=== PATIENT | male | born 1975 | race Caucasian/White ===

== ENCOUNTER 2018-05-01 18:59 | Emergency (ER) | payer OTHER ==
[2018-05-01 19:40] VITALS: BP 118/80; PULSE 73; TEMP 98; BMI 36.8
--- NOTE | 2018-05-01 19:40 | PDOC ---
Rapid Medical Evaluation Time Seen by Provider: 05/01/18 19:38 Medical Evaluation: 05/01/18 19:39 Pt presents to the ED for R eye pain x1 day. Unsure if he got anything in it at work. No visual changes. Exam: R eye is red, EOMI Orders: Nothing Pt to proceed to ED for further evaluation Discharge Disposition - Diagnosis Eye pain - Referrals - Patient Instructions - Post Discharge Activity
[2018-05-01] MEDS ORDERED: TETRACAINE 0.5% OPHTH SOLN 2 ML BOTTLE ONE (19:59)
[2018-05-01] MEDS ORDERED: FLUORESCEIN NA 1 EA STRIP OD ONE (20:08)
[2018-05-01] MEDS ORDERED: DIPHTH,PERTUSS(ACELL),TET 0.5 ML DISP.SYRIN IM ONE (20:08)
--- NOTE | 2018-05-01 20:13 | PDOC ---
History of Present Illness - General Chief Complaint: Eye Problem Stated Complaint: EYE PROBLEM Time Seen by Provider: 05/01/18 19:38 History Source: Patient Exam Limitations: No Limitations - History of Present Illness Initial Comments: 05/01/18 20:08 HISTORY OF PRESENT ILLNESS: 42-year-old male denies medical history presents emergency department with foreign body in right eye. 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 Patient states the room was filled with dust and he believes dust is the cause of the foreign body sensation. Patient presented emergency department when he looked in the mirror and he saw that he had obvious retained foreign body in his right eye. He denies any blurry vision or visual difficulties. Patient does not remember when his last tetanus shot was. No recent travel or sick contacts. PAST MEDICAL HISTORY: Denies past medical history SURGICAL HISTORY: Denies ALLERGIES: No known drug allergies REVIEW OF SYSTEMS General/Constitutional: Denies fever or chills. Denies weakness, weight change. HEENT: Denies change in vision. Denies ear pain or discharge. Denies sore throat. Right eye pain. Cardiovascular: Denies chest pain or shortness of breath. Respiratory: Denies cough, wheezing, or hemoptysis. Gastrointestinal: Denies nausea, vomiting, diarrhea or constipation. Denies rectal bleeding. Genitourinary: Denies dysuria, frequency, or change in urination. Musculoskeletal: Denies joint or muscle swelling or pain. Denies neck or back pain. Skin and breasts: Denies rash or easy bruising. Neurologic: Denies headache, vertigo, loss of consciousness, or loss of sensation. Psychiatric: Denies depression or anxiety. Endocrine: Denies increased thirst. Denies abnormal weight change. Hematologic/Lymphatic: Denies anemia, easy bleeding, or history of blood clots. Allergic/Immunologic: Denies hives or skin allergy. Denies latex allergy. PHYSICAL EXAM General Appearance: Well-appearing, appropriately dressed. No apparent distress , no intoxication. HEENT: EOMI, PERRLA, normal ENT inspection, normal voice, TMs normal, pharynx normal. No conjunctival pallor. No photophobia, scleral icterus. Visualized FB at 5 o'clock postiion in right eye. Neck: Supple. Trachea midline. No tenderness, rigidity, carotid bruit, stridor , lymphadenopathy, or thyromegaly. Respiratory/Chest: Lungs CTAB. No shortness of breath, chest tenderness, respiratory distress, accessory muscle use. No crackles, rales, rhonchi, stridor , wheezing, dullness Cardiovascular: RRR. S1, S2. No JVD, murmur, bradycardia, tachycardia. Vascular Pulses: Dorsalis-Pedis (R): 2+, Dorsalis-Pedis (L): 2+ Gastrointestinal/Abdominal: Normal bowel sounds. Abdomen soft, non-distended. No tenderness or rebound tenderness. No organomegaly, pulsatile mass, guarding, hernia, hepatomegaly, splenomegaly. Lymphatic: No adenopathy, tenderness. Musculoskeletal/Extremities: Normal inspection. FROM of all extremities, normal capillary refill. Pelvis Stable. No CVA tenderness. No tenderness to extremities, pedal edema, swelling, erythema or deformity. Integumentary: Appropriate color, dry, warm. No cyanosis, erythema, jaundice or rash Neurologic: hand expansion envelope maker II-XII intact. Fully oriented, alert. Appropriate mood/affect. Motor strength 5/5. No appreciable EOM palsy, facial droop or sensory deficit. Past History - Past Medical History Allergies/Adverse Reactions: Allergies Allergy/AdvReac Type Severity Reaction Status Date / Time No Known Allergies Allergy Verified 05/01/18 19:40 Home Medications: Ambulatory Orders Erythromycin 0.5% Eye Ointment [Erythromycin 0.5% Eye Ointment -] 1 applic OD 5XD #1 tube 05/01/18 COPD: No - Suicide/Smoking/Psychosocial Hx Smoking History: Never smoked *Physical Exam - Vital Signs Last Vital Signs Temp Pulse Resp BP Pulse Ox 98 F 73 18 118/80 100 05/01/18 19:37 05/01/18 19:37 05/01/18 19:37 05/01/18 19:37 05/01/18 19:37 Medical Decision Making - Medical Decision Making 05/01/18 20:09 A/P: 42-year-old male with foreign body in right cornea EYE EXAMINATION: Visual acuity: 20/30 in the left eye, 20/30 in the right eye, near, uncorrected The lid and lashes are normal. Extraocular movements are intact. The conjunctiva is clear without erythema, injection, or discharge Visualized foreign body in the cornea at the 5 o'clock position of the right iris. The pupils are equal, round and reactive to light. The fundus shows normal vessels and normal discs. Foreign body removed after instillation of tetracaine and saline. The corneal surface is normal post tetracaine and fluorescein. There is no corneal abrasion or foreign body. There is no abnormal fluorescein uptake. EES ointment as outpt. Ophtho f/u *DC/Admit/Observation/Transfer Diagnosis at time of Disposition: Foreign body of eye, external, right Qualifiers: Encounter type: initial encounter Qualified Code(s): T15.91XA - Foreign body on external eye, part unspecified, right eye, initial encounter - Discharge Dispostion Disposition: HOME Condition at time of disposition: Stable Decision to Admit order: No - Prescriptions Prescriptions: Erythromycin 0.5% Eye Ointment [Erythromycin 0.5% Eye Ointment -] 1 applic OD 5XD #1 tube - Referrals Referrals: Diya Campos MD [Staff Physician] - - Patient Instructions Additional Instructions: Rest, avoid rubbing eyes Wash hands, use eye drops as directed, wash hands after use May use eye lubricating drops as often as needed erythromycin ointment, one thin film 3 times a day for 5 days Tylenol or ibuprofen for pain relief Avoid contact with others until redness and discharge is gone from eyes. Followup with ophthalmology in one to 2 days for thorough exam Return to emergency department for worsened pain, swelling, vision problems. - Post Discharge Activity Forms/Work/School Notes: Back to Work
[2018-05-01] MEDS ORDERED: ERYTHROMYCIN 0.5% OPHTHALMIC OINTMENT 3.5 GM TUBE OD ONE (20:16)
[2018-05-01] MEDS ORDERED: ERYTHROMYCIN 0.5% OPHTHALMIC OINTMENT 3.5 GM TUBE ONE (20:18)
[2018-05-01] MEDS ORDERED: FLUORESCEIN NA 1 EA STRIP ONE (20:20)
== END 2018-05-01 20:25 | disposition home or self-care (01) ==
LOC: JERFT 18:59
PROC: 4A07X0Z Measurement of Visual Acuity, External Approach (ICD-10-PCS; principal; 2018-05-01)
PROC: 08C8XZZ Extirpation of Matter from Right Cornea, External Approach (ICD-10-PCS; 2018-05-01)
PROC: 3E0234Z Introduction of Serum, Toxoid and Vaccine into Muscle, Percutaneous Approach (ICD-10-PCS; 2018-05-01)
DX: T15.01XA Foreign body in cornea, right eye, initial encounter (principal); X58.XXXA Exposure to other specified factors, initial encounter; Y93.89 Activity, other specified; Y92.69 Other specified industrial and construction area as the place of occurrence of the external cause; Y99.0 Civilian activity done for income or pay
CPT/HCPCS: 90715; 99281-25